=== PATIENT | male | born 1960 | race Caucasian/White ===

== ENCOUNTER 2018-11-06 13:17 | Emergency (ER) | payer OTHER ==
[~2018-11-06] VITALS: Ht 180.3 cm; Wt 125.2 kg
--- OUTSIDE RECORDS SUMMARY | ~2018-11-06 | XMS | Clinical Summary ---
Demographics + + + | Address | [address] | | | [place] [address] | + + + | Home Phone | | + + + | Preferred Language | Unknown | + + + | Marital Status | | + + + | Sikh Affiliation | Unknown | + + + | Race | White | + + + | Ethnic Group | Not or | + + + Author + + + | Organization | Unknown | + + + | Address | Unknown | + + + | Phone | Unavailable | + + + Support + + + + + | Name | Relationship | Address | Phone | + + + + + | BRITTNI ORTA | ECON | [place] | | + + + + + Care Team Providers + +------+ + | Care Movie Star Name | Role | Phone | + +------+ + PP | Unavailable | + +------+ + Source Comments YINKA is fully live on both [facility] Ambulatory and [facility] InPatient.[facility] Allergies Not on File Current Medications Not on file Active Problems Not on file Social History + +-------+ +--------+------+ | Tobacco Use | Types | Packs/Day | Years | Date | | | | | Used | | + +-------+ +--------+------+ | Never Assessed | | | | | + +-------+ +--------+------+ + + + | Sex Assigned at | Date Recorded | | | | + + + | Not on file | | + + + Plan of Treatment + + + + + | Health Maintenance | Due Date | Last Done | Comments | + + + + + | Influenza (Flu) | | | | | vaccination (#1) | 8 | | | + + + + + Results Not on filefrom Last 3 Months"
--- OUTSIDE RECORDS SUMMARY | ~2018-11-06 | XMS | Clinical Summary ---
Demographics + + + | Address | [address] | | | [place] [address] | + + + | Home Phone | | + + + | Preferred Language | Unknown | + + + | Marital Status | | + + + | Confucianist Affiliation | 1009 | + + + | Race | Unknown | + + + | Ethnic Group | Unknown | + + + Author + + + | Author | [facility] | + + + | Organization | [facility] | + + + | Address | Unknown | + + + | Phone | Unavailable | + + + Support + + +---------+ + | Name | Relationship | Address | Phone | + + +---------+ + | Detailed,Message | ECON | Unknown | | + + +---------+ + | Amarilis Orta | ECON | Unknown | | + + +---------+ + Care Team Providers + +------+ + | Care Assemblies And Installations Inspector Name | Role | Phone | + +------+ + | Jimmy Rogers MD | PP | | + +------+ + Allergies + + + + + + | Active Allergy | Reactions | Severity | Noted | Comments | | | | | Date | | + + + + + + | Hydromorphone | Hallucinations | Medium | 07/24/19 | | | | | | 16 | | + + + + + + | Morphine | Nausea and Vomiting | Low | 04/15/20 | | | | | | 15 | | + + + + + + Current Medications + + +--------+---------+------+------+-------+ | Prescription | Sig. | Disp. | Refills | Star | End | Statu | | | | | | t | Date | s | | | | | | Date | | | + + +--------+---------+------+------+-------+ | phenobarbital | Take 64.8 mg by | | | | | Activ | | (LUMINAL) 64.8 MG | mouth daily. | | | | | e | | tablet | | | | | | | + + +--------+---------+------+------+-------+ | | Take 1 tablet by | | | | | Activ | | lisinopril-hydrochlo | mouth daily. | | | | | e | | rothiazide | | | | | | | | (ZESTORETIC) 20-12.5 | | | | | | | | MG per tablet | | | | | | | + + +--------+---------+------+------+-------+ | insulin aspart | Inject into the | | | | | Activ | | protamine-insulin | skin 2 (two) times | | | | | e | | aspart (NOVOLOG | daily before meals. | | | | | | | 70/30) (70-30) 100 | | | | | | | | UNIT/ML injection | | | | | | | + + +--------+---------+------+------+-------+ | insulin glargine | Inject into the | | | | | Activ | | (LANTUS) 100 UNIT/ML | skin nightly. | | | | | e | | injection | | | | | | | + + +--------+---------+------+------+-------+ | metFORMIN | Take 1 tablet by | | | 07/12 | | Activ | | (GLUMETZA) 500 MG | mouth daily with | | | 12/29 | | e | | (MOD) 24 hr tablet | breakfast. Hold for | | | 16 | | | | | 2 days. Restart on | | | | | | | | 07/27/2015 | | | | | | + + +--------+---------+------+------+-------+ | metoprolol | Take 1 tablet by | 90 | 3 | 08/0 | | Activ | | (TOPROL-XL) 25 MG 24 | mouth daily. | tablet | | 2/20 | | e | | hr tablet | | | | 16 | | | + + +--------+---------+------+------+-------+ | atorvastatin | Take 1 tablet by | 90 | 3 | 08/2 | | Activ | | (LIPITOR) 80 MG | mouth every evening. | tablet | | 2/20 | | e | | tablet | | | | 17 | | | + + +--------+---------+------+------+-------+ Active Problems Not on file Family History + + +------+ + | Medical History | Relation | Name | Comments | + + +------+ + | Cancer | Mother | | | + + +------+ + | Diabetes type II | Mother | | | + + +------+ + + +------+--------+ + | Relation | Name | Status | Comments | + +------+--------+ + | Mother | | | | + +------+--------+ + Social History + +-------+ +--------+------+ | Tobacco Use | Types | Packs/Day | Years | Date | | | | | Used | | + +-------+ +--------+------+ | Never Smoker | | | | | + +-------+ +--------+------+ + +---+---+---+ | Smokeless Tobacco: | | | | | Never Used | | | | + +---+---+---+ + + +---------+ + | Alcohol Use | Drinks/We | oz/Week | Comments | | | ek | | | + + +---------+ + | Yes | 1 Cans | 0.6 | | | | of beer | | | + + +---------+ + + + + | Sex Assigned at | Date Recorded | | | | + + + | Not on file | | + + + Last Filed Vital Signs + + + + | Vital Sign | Reading | Time Taken | + + + + | Blood Pressure | 180/96 | 08/06/2016 9:09 AM PST | + + + + | Pulse | 70 | 08/06/2016 9:09 AM PST | + + + + | Temperature | 36.2 C (97.2 F) | 07/24/2015 10:03 AM PST | + + + + | Respiratory Rate | 18 | 02/06/2016 3:35 PM PDT | + + + + | Oxygen Saturation | 93% | 08/06/2016 9:09 AM PST | + + + + | Inhaled Oxygen | - | - | | Concentration | | | + + + + | Weight | 130.2 kg (287 lb) | 08/06/2016 9:09 AM PST | + + + + | Height | 182.9 cm (6') | 08/06/2016 9:09 AM PST | + + + + | Body Mass Index | 38.92 | 08/06/2016 9:09 AM PST | + + + + Plan of Treatment + + + + + | Health Maintenance | Due Date | Last Done | Comments | + + + + + | Vaccine: | | | | | Dtap/Tdap/Td (1 - | 1 | | | | Tdap) | | | | + + + + + | Colon Cancer | | | | | Screening | 2 | | | | (Colonoscopy) | | | | + + + + + | Vaccine: Zoster (1 | | | | | of 2) | 2 | | | + + + + + | Vaccine: Influenza | | | | | (Season Ended) | 9 | | | + + + + + Results Not on filefrom Last 3 Months Insurance + +--------+ +------+-------+---------+ | Payer | Benefi | Subscriber | Type | Phone | Address | | | t Plan | ID | | | | | | / | | | | | | | Group | | | | | + +--------+ +------+-------+---------+ | [employer] | FC-NET | [id number] | | | | | | WORK | | | | | + +--------+ +------+-------+---------+ | [employer] | ODS | [id number] | | | | | | HEALTH | | | | | | | PLAN | | | | | + +--------+ +------+-------+---------+ + +--------+ +--------+ + + | Guarantor Name | Accoun | Relation to | Date | Phone | Billing Address | | | t Type | Patient | of | | | | | | | | | | + +--------+ +--------+ + + | TONNY ORTA | Person | Self | [birth year] | Home: | [address] | | | al/Fam | | 2 | [phone] | [place] | | | [place] | | | [phone] | [phone] | + +--------+ +--------+ + +"
--- OUTSIDE RECORDS SUMMARY | ~2018-11-06 | XMS | Clinical Summary ---
Demographics + + + | Address | [address] | | | [place] [address] | + + + | Home Phone | | + + + | Preferred Language | Unknown | + + + | Marital Status | | + + + | Mormon Affiliation | 1041 | + + + | Race | Unknown | + + + | Ethnic Group | Unknown | + + + Author + + + | Author | [facility] | | | and [place] | + + + | Organization | [facility] | | | and [place] | + + + | Address | Unknown | + + + | Phone | Unavailable | + + + Support + + + + + | Name | Relationship | Address | Phone | + + + + + | Amarilis Chand | ECON | [address] | | | | | [place] | | | | | [address] | | + + + + + Care Team Providers + +------+ + | Care Frame Fixer Name | Role | Phone | + +------+ + | Jimmy Rogers | PP | | | MD | | | + +------+ + Allergies + + + + + + | Active Allergy | Reactions | Severity | Noted | Comments | | | | | Date | | + + + + + + | Hydromorphone | Other (See Comments) | Medium | 09/22/19 | | | | | | 17 | | + + + + + + | Morphine | Nausea And Vomiting | Low | 09/22/19 | | | | | | 17 | | + + + + + + Medications + + + +---------+------+------+-------+ | Medication | Sig | Dispensed | Refills | Star | End | Statu | | | | | | t | Date | s | | | | | | Date | | | + + + +---------+------+------+-------+ | atorvaSTATin | Take 80 mg by mouth. | | 0 | 08/0 | | Activ | | (LIPITOR) 80 MG | | | | 2/20 | | e | | tablet | | | | 16 | | | + + + +---------+------+------+-------+ | | Take 1 tablet by | | 0 | | | Activ | | lisinopril-hydrochlo | mouth 2 times daily. | | | | | e | | rothiazide | | | | | | | | (PRINZIDE,ZESTORETIC | | | | | | | | ) 20-12.5 MG per | | | | | | | | tablet | | | | | | | + + + +---------+------+------+-------+ | metFORMIN | Take 1,000 mg by | | 0 | 01/1 | | Activ | | (GLUMETZA) 500 MG 24 | mouth 2 times daily. | | | 6/20 | | e | | hr tablet | | | | 16 | | | + + + +---------+------+------+-------+ | metoprolol | Take 100 mg by mouth | | 0 | 08/0 | | Activ | | succinate | Daily. | | | 2/20 | | e | | (TOPROL-XL) 25 mg 24 | | | | 16 | | | | hr tablet | | | | | | | + + + +---------+------+------+-------+ | PHENobarbital 64.8 | Take 64.8 mg by | | 0 | | | Activ | | mg tablet | mouth nightly. | | | | | e | | | PATIENT STATES HE | | | | | | | | TAKES 3 TABLETS AT | | | | | | | | ONE TIME DAILY | | | | | | + + + +---------+------+------+-------+ | insulin glargine | Inject under the | | 0 | | | Activ | | (LANTUS SOLOSTAR) | skin nightly. | | | | | e | | 100 units/mL | | | | | | | | injection (pen) | | | | | | | + + + +---------+------+------+-------+ | aspirin 81 mg EC | Take 81 mg by mouth | | 0 | | | Activ | | tablet | Daily. | | | | | e | + + + +---------+------+------+-------+ | insulin lispro | Inject under the | | 0 | | | Activ | | (HUMALOG) 100 | skin 3 times daily | | | | | e | | units/mL injection | (before meals). | | | | | | | (vial) | SLIDING SCALE | | | | | | + + + +---------+------+------+-------+ | amLODIPine | Take 5 mg by mouth | | 0 | | | Activ | | (NORVASC) 5 mg | Daily. | | | | | e | | tablet | | | | | | | + + + +---------+------+------+-------+ Active Problems + + + | Problem | Noted Date | + + + | Bradycardia | 09/24/2016 | + + + | DM type 2 (diabetes mellitus, type 2) | 09/17/2016 | + + + | Essential hypertension | 09/17/2016 | + + + | LDL (low density lipoprotein receptor disorder) | 09/17/2016 | + + + | TRACIE (obstructive sleep apnea) | 09/17/2016 | + + + | Seizure disorder | 09/17/2016 | + + + | SOB (shortness of breath) | 09/17/2016 | + + + | Dizziness | 09/17/2016 | + + + | Chest pain | 09/17/2016 | + + + + + | Overview: Echo 07/01/15 LVEF 60-65%, [facility].Cardiac Cath | | 07/24/15, Two-vessel CAD with moderate disease of the proximal | | left anterior descending artery, and mild disease of the right | | coronary artery. Normal left ventricular end-diastolic pressure. | | SKYC. | + + + +---+ | Hypercholesterolemia | | + +---+ | ASCVD (arteriosclerotic cardiovascular disease) | | + +---+ Family History + + +------+ + | Medical History | Relation | Name | Comments | + + +------+ + | Heart attack | Maternal | | | | | Grandfath | | | | | er | | | + + +------+ + | Cancer | Mother | | | + + +------+ + | Diabetes | Mother | | | + + +------+ + | Heart disease | Son | | | + + +------+ + | Sleep apnea | Son | | | + + +------+ + + +---------+ + + | Relation | Name | Status | Comments | + +---------+ + + | Brother | half | Alive | snore | + +---------+ + + | Father | unknown | Alive | | + +---------+ + + | Maternal Grandfather | | | | + +---------+ + + | Mother | | | Snore | | | | (Age | | | | | 71) | | + +---------+ + + | Sister | half | Alive | snore | + +---------+ + + | Son | | Alive | | + +---------+ + + | Son | | Alive | | + +---------+ + + Social History + +-------+ +--------+------+ | Tobacco Use | Types | Packs/Day | Years | Date | | | | | Used | | + +-------+ +--------+------+ | Never Smoker | | | | | + +-------+ +--------+------+ + +------+---+ + | Smokeless Tobacco: | Chew | | Quit: | | Former User | | | 07/12/19 | | | | | 12 | + +------+---+ + + + +---------+ + | Alcohol Use | Drinks/We | oz/Week | Comments | | | ek | | | + + +---------+ + | Yes | 0 | 0.0 | RARE | | | Standard | | | | | drinks or | | | | | | | | | | equivalen | | | | | t | | | + + +---------+ + + + + | Sex Assigned at | Date Recorded | | | | + + + | Not on file | | + + + + + + + | Job Start Date | Occupation | Industry | + + + + | Not on file | Not on file | Not on file | + + + + + + + + | Travel History | Travel Start | Travel End | + + + + + + | No recent travel history available. | + + Last Filed Vital Signs + + + + | Vital Sign | Reading | Time Taken | + + + + | Blood Pressure | 132/66 | 12/08/20161415 PDT | + + + + | Pulse | 63 | 12/08/20161415 PDT | + + + + | Temperature | - | - | + + + + | Respiratory Rate | 16 | 12/08/20161415 PDT | + + + + | Oxygen Saturation | 96% | 12/08/20161415 PDT | + + + + | Inhaled Oxygen | - | - | | Concentration | | | + + + + | Weight | 125.4 kg (276 lb 6.4 | 12/08/20161415 PDT | | | oz) | | + + + + | Height | 181.6 cm (5' 11.5") | 12/08/20161415 PDT | + + + + | Body Mass Index | 38.01 | 12/08/20161415 PDT | + + + + Plan of Treatment + + + + + | Health Maintenance | Due Date | Last Done | Comments | + + + + + | Hepatitis C | | | | | Screening | 2 | | | + + + + + | Diabetic Eye Exam | | | | | | 0 | | | + + + + + | Diabetic Foot Exam | | | | | | 0 | | | + + + + + | Vaccine: | | | | | Dtap/Tdap/Td (1 - | 1 | | | | Tdap) | | | | + + + + + | Vaccine: | | | | | Pneumococcal 19-64 | 1 | | | | (PPSV23 only) Medium | | | | | Risk (1 of 1 - | | | | | PPSV23) | | | | + + + + + | Colorectal Cancer | | | | | Screening | 2 | | | | (Colonoscopy) | | | | + + + + + | Vaccine: Zoster (1 | | | | | of 2) | 2 | | | + + + + + | Hemoglobin A1c | | 10/27/2016 | | | Screening | 7 | | | + + + + + | Vaccine: Influenza | | | | | (Season Ended) | 9 | | | + + + + + Results Not on filefrom Last 3 Months Insurance + +--------+ +--------+ + +------+ | Payer | Benefi | Subscriber | Effect | Phone | Address | Type | | | t Plan | ID | madhav | | | | | | / | | Dates | | | | | | Group | | | | | | + +--------+ +--------+ + +------+ | [employer] | PHP | [id number] | 07/12/19 | [phone] | | PPO | | PLAN | PEBB | | 10-Pre | 5 | | | | | STATEW | | sent | | | | | | KRIS | | | | | | + +--------+ +--------+ + +------+ | MODA | MODA | [id number] | | [phone] | [address] | PPO | | | [address] | | [address] | [id number] | | | | [place] | | esent | | [place], | | | | [place] | | | | [place] [address] | | + +--------+ +--------+ + +------+ + +--------+ +--------+ + + | Guarantor Name | Accoun | Relation to | Date | Phone | Billing Address | | | t Type | Patient | of | | | | | | | | | | + +--------+ +--------+ + + | Troy Chand | Person | Self | [birth year] | | [address] | | [place] | sarina/José | | 1960 | [phone] | [address] [place] | | | [place] | | | [address] (Home) | [address] | + +--------+ +--------+ + + Advance Directives Patient has advance care planning documents on file. For more information, please contact:[facility] [place] [address]
--- OUTSIDE RECORDS SUMMARY | ~2018-11-06 | XMS | Clinical Summary ---
Demographics + + + | Address | [address] | | | [place] [address] | + + + | Home Phone | | + + + | Preferred Language | Unknown | + + + | Marital Status | | + + + | Alevism Affiliation | 1009 | + + + | Race | Unknown | + + + | Ethnic Group | Unknown | + + + Author + + + | Author | [facility] | + + + | Organization [...] Team Providers + +------+ + | Care Lan Manager Name | Role | Phone | + [...] +------+-------+---------+ | [employer] | FC-NET | [id number] | | | | | | WORK | | | | | + +--------+ +------+-------+---------+ | [employer] | ODS | [id number] | | | | | | HEALTH [...] | Self | [birth year] | Home: | [address] | | | al/Fam | | [phone] | [phone] | [place] | | | [place] | | | [phone] | [phone] | + +--------+ +--------+ + +"
--- OUTSIDE RECORDS SUMMARY | ~2018-11-06 | XMS | Clinical Summary ---
Demographics + + + | Address | [address] | | | [place] [address] | + + + | Home Phone | | + + + | Preferred Language | Unknown | + + + | Marital Status | | + + + | Druze Affiliation | Unknown | + + + [...] Team Providers + +------+ + | Care Fisher Swordfish Name | Role | Phone | + +------+ + PP | Unavailable | + +------+ + Source Comments YNIKA is fully live on both [facility] Ambulatory and [facility] InPatient.[facility] Allergies Not on File Current Medications [...]
--- OUTSIDE RECORDS SUMMARY | ~2018-11-06 | XMS | Clinical Summary ---
Demographics + + + | Address | [address] | | | [place] [address] | + + + | Home Phone | | + + + | Preferred Language | Unknown | + + + | Marital Status | | + + + | Nondenominational Affiliation | 1041 | + + + | Race | Unknown | + + + | Ethnic Group | Unknown | + + + Author + + + | Author | [facility] | | | and [place] | + + + | Organization | [facility] | | | and [place] | + + + | Address | Unknown | + + + | Phone | Unavailable | + + + Support + + + + + | Name | Relationship | Address | Phone | + + + + + | Amarilis Chand | ECON | [address] | | | | | [place] | | | | | [address] | | + + + + + Care Team Providers + +------+ + | Care Process Maintenance Technician Name | Role | Phone | + [...] +------+ | [employer] | PHP | [id number] | 07/12/19 | [phone] | | PPO | | PLAN | PEBB | | 10-Pre | 5 | | | | | STATEW | | sent | | | | | | KRIS | | | | | | + +--------+ +--------+ + +------+ | MODA | MODA | [id number] | | [phone] | [address] | PPO | | | OE[address] | | [address] | [address] | [phone] | | | | [place] | | esent | | [place], | | | | [place] | | | | [place] [address] | | + +--------+ +--------+ + +------+ + +--------+ +--------+ + + | Guarantor Name | Accoun | Relation to | Date | Phone | Billing Address | | | t Type | Patient | of | | | | | | | | | | + +--------+ +--------+ + + | Troy Chand | Person | Self | [birth year] | | [address] | | [place] | sarina/José | | 1960 | [phone] | [address] [place] | | | [place] | | | [address] (Home) | [address] | + +--------+ +--------+ + + Advance Directives Patient has advance care planning documents on file. For more information, please contact:[place] [address]
[~2018-11-06 13:17] MED LIST: ASPIR-LOW81 MG PO; KEFLEX500 MG PO; LANTUS SOL100 UNIT/1 SUB-Q; LEVOFLOXACIN500 MG PO; LIPITOR80 MG PO; LISINOPRIL-HCT1 EACH PO; LISINOPRIL20 MG PO; METFORMIN HCL1000 MG PO; METFORMIN HCL500 M1 PO; METOPROLOL SUCC25 MG PO; NORVASC5 MG PO; PHENOBARBITAL100 MG PO; REVATIO20 MG PO; ZITHROMAX250 MG PO
--- OUTSIDE RECORDS SUMMARY | 2018-11-06 13:20 | XMS ---
PreManage Notification: TONNY ORTA Security Slp Teacher Events No recent Security Events currently on file CRITERIA MET - OSCARP CARE PROVIDERS Jimmy Rogers Current PHONE: Unknown Schuyler has no Care Guidelines for this patient. EDerek VISIT COUNT (12 MO.) 1 ALFREDO Young TOTAL 1 NOTE: Visits indicate total known visits. ED/UCC VISIT TRACKING (12 MO.) 11/06/2018 13:18 [facility] TYPE: Emergency COMPLAINT: - RIB AND BACK PAIN INPATIENT VISIT TRACKING (12 MO.) No inpatient visits to display in this time frame [email or web address]
[2018-11-06] MEDS ORDERED: IBUPROFEN600 MG PO (14:32)
[2018-11-06] MEDS ORDERED: ZOFRAN4 MG SL (14:32)
[2018-11-06] MEDS ORDERED: NORCO 10-325 T1 EACH PO (14:32)
== END 2018-11-06 14:45 | disposition home or self-care (01) ==
LOC: ED 13:17
DX: S22.42XA Multiple fractures of ribs, left side, initial encounter for closed fracture (principal); I10 Essential (primary) hypertension; E78.00 Pure hypercholesterolemia, unspecified; Z87.442 Personal history of urinary calculi; Z87.891 Personal history of nicotine dependence; Z88.7 Allergy status to serum and vaccine; Z88.5 Allergy status to narcotic agent; Z79.82 Long term (current) use of aspirin; Z79.899 Other long term (current) drug therapy; V80.010A Animal-rider injured by fall from or being thrown from horse in noncollision accident, initial encounter
CPT/HCPCS: 71101; 99284-25

== ENCOUNTER 2019-04-06 15:48 | Emergency (ER) | payer OTHER ==
[~2019-04-06] VITALS: Ht 462.3 cm; Wt 122.5 kg
[~2019-04-06 15:48] MED LIST changes: +IBUPROFEN600 MG PO; +NORCO 10-325 T1 EACH PO; +ZOFRAN4 MG SL
--- OUTSIDE RECORDS SUMMARY | 2019-04-06 15:50 | XMS ---
PreManage Notification: TONNY ORTA Security Technical Services Specialist Events No recent Security Events currently on file CRITERIA MET - OSCARP CARE PROVIDERS DANIEL ROGERS Family [facility] 11/07/2018-Current PHONE: Unknown Daniel Rogers Treatment Current [place] PHONE: Unknown Schuyler has no Care Guidelines for this patient. EDerek VISIT COUNT (12 MO.) Leroy Young TOTAL 2 NOTE: Visits indicate total known visits. 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
[2019-04-06] MEDS ORDERED: METOPROLOL SUC200 MG PO (16:06)
[2019-04-06] MEDS ORDERED: CITALOPRAM HBR40 MG PO (16:07)
[2019-04-06] MEDS ORDERED: PREDNISONE20 MG PO (20:15)
[2019-04-06] MEDS ORDERED: VENTOLIN HFA18 GM INH (20:15)
--- NOTE | 2019-04-07 12:34 | EKG ---
[facility] [address] [place] [address] Signed Sinus bradycardia Left axis deviation Right bundle branch block Abnormal ECG No previous ECGs available Confirmed by KATIE SANTANA MD ([id number]) on 04/07/2019 12:34:24 PM Electronically Signed By: KATIE SANTANA MD 04/07/19 1234 PATIENT NAME: YOUJOSE L ARMSTRONGONY HENDERSON Electrocardiogram DATE OF : 64 PHYSICIAN: KATIE SANTANA MD REPORT #: [id number] REPORT IS CONFIDENTIAL AND NOT TO BE RELEASED WITHOUT AUTHORIZATION
--- NOTE | 2019-04-07 12:34 | EKG ---
[facility] [address], [place] [address] Signed Sinus bradycardia Left axis deviation Right bundle branch block Abnormal ECG When compared with ECG of 06-APR-2019 15:55, (Unconfirmed) No significant change was found Confirmed by KATIE SANTANA MD ([id number]) on 04/07/2019 12:34:38 PM Electronically Signed By: KATIE SANTANA MD 04/07/19 1234 PATIENT NAME: YOUTONNY MCGRAWS Electrocardiogram DATE OF : 64 PHYSICIAN: KATIE SANTANA MD REPORT #: [id number] REPORT IS CONFIDENTIAL AND NOT TO BE RELEASED WITHOUT AUTHORIZATION
== END 2019-04-06 20:28 | disposition home or self-care (01) ==
LOC: ED 15:48 → ER 15:48 → ED 20:28
DX: J40 Bronchitis, not specified as acute or chronic (principal); J98.01 Acute bronchospasm; I10 Essential (primary) hypertension; E11.9 Type 2 diabetes mellitus without complications; I25.2 Old myocardial infarction; Z87.01 Personal history of pneumonia (recurrent); Z88.5 Allergy status to narcotic agent; Z88.7 Allergy status to serum and vaccine; Z79.4 Long term (current) use of insulin; Z79.82 Long term (current) use of aspirin; Z79.899 Other long term (current) drug therapy
CPT/HCPCS: 71046; 80053; 83735; 84484; 85025; 93005; 93010; 94640; 99285-25; J7512

== ENCOUNTER 2022-02-04 06:20 | Day surgery (SDC) | payer OTHER ==
[~2022-02-04] VITALS: Ht 180.3 cm; Wt 114.1 kg
[~2022-02-04 06:20] MED LIST changes: +AMBIEN10 MG PO; +BAYER CHEWABLE81 MG PO; +CEFPROZIL500 MG PO; +CELECOXIB200 MG PO; +CITALOPRAM HBR40 MG PO; +GABAPENTIN600 MG PO; +METOPROLOL SUC200 MG PO; +NOVOLOG FL100 UNIT/1 SUB-Q; +OXYCODONE HCL5 MG PO; +OZEMPIC1 MG/0.71 SUB-Q; +PHENOBARBITAL64.8 MG PO; +PREDNISONE20 MG PO; +SENNA LAX8.6 MG PO; +TAMSULOSIN HCL0.4 MG PO; +VALSARTAN-HCTZ1 EAC1 PO; +VENTOLIN HFA18 GM INH; +XARELTO10 MG PO
--- NOTE | 2022-02-04 08:24 | NUR ---
02/04/22 0824 Bhumi Solitario 0816-PATIENT ARRIVED TO PACU ON 6L MASK RR EVEN. PATIENT REACTIVE TO VERBAL STIMULI OPENING EYES ORIENTED TO PACU AND DOZES BACK TO SLEEP. DRESSING TO CHEST CDI ICE APPLIED. GLUCOSE 291 PATIENT TO RESUME MEDICATIONS AT HOME. SR. IVF INFUSING. PATIENT HAS SLEEP APNEA BUT DOES NOT USE CPAP AT HOME.
--- NOTE | 2022-02-04 08:37 | NUR ---
PT ALERT, ORIENTED AND SUPPORTED BY HIS UNRULY. PT CONCERNED BECAUSE OF RECENT COVID INFECTION THAT PROCDDURE WILL NOT HAPPEN TODAY. HAD DAIJA, OPEN DISCUSSION. PT REQUESTED PRAYER,PT WOULD LIKE SOME RELIEF FROM THE CYST THAT HAS MADE HIS LIFE CHALLENGING. GAVE ENCOURAGEMENT, PROCECURE WILL HAPPEN!
[2022-02-04] MEDS ORDERED: HYDROCODON-ACE1 EAC8 PO (08:40)
--- NOTE | 2022-02-04 10:13 | OR ---
[facility] [address] [place], [place] [address] Signed DATE OF OPERATION: 02/04/2022 SURGEON: Nehal Gross MD PREOPERATIVE DIAGNOSIS: Midsternal epidermal inclusion cyst (3 cm). POSTOPERATIVE DIAGNOSIS: Midsternal epidermal inclusion cyst (3 cm). PROCEDURE: Excision of midsternal epidermal inclusion cyst. ESTIMATED BLOOD LOSS: None. INDICATIONS: Tonny is a 61-year-old diabetic gentleman, who developed a midsternal epidermal inclusion cyst. He said it started quite small, but now it was around 3 cm in diameter. He had been to his primary care provider and asked to see me in consultation. It has been very inflamed and tender. In the office, we incised and drained that under local anesthetic. We squeezed out as much sebum as possible. We left it open to use gauze packing. Actually his neighbor has been helping him with the packing. Apparently, his does not like to do it. He is aware that we have to let this settle down and then remove the entire cyst and cyst wall. He returns today to have his definitive excision. He has a full better granulation tissue. However, I some of the cyst wall on the right side of the cavity. I explained to Juan and his that it might be best to go and just leave this open and allow to heal in secondarily after we do our definitive excision. However, they wanted to close the skin and proceed from there. If it becomes infected, it is going to need open. By closing the skin, he is certainly going to have a contour defect. They are very aware of epidermal inclusion cyst at this point. They understand there is risk including, but not limited to bleeding, infection, scarring, change in contour of the skin as well as recurrent cyst in the same or other locations. They expressed understanding and would like to proceed. DESCRIPTION OF PROCEDURE: I met with Juan and his in our preop area. We were able to easily identify the area of the cyst over the midsternum. He was then taken to the operating room and placed in the supine position under monitored anesthesia care. He was given preoperative antibiotics along with subcutaneous heparin. SCDs were utilized. He was Electronically Signed By: NEHAL GROSS MD 02/04/22 1013 PATIENT NAME: TONNY ORTA OPERATIVE REPORT DATE OF : 64 REPORT #: [id number] PHYSICIAN: NEHAL GROSS MD PCP: KITA CA PAC REPORT IS CONFIDENTIAL AND NOT TO BE RELEASED WITHOUT AUTHORIZATION [facility] [address] [place], [place] [address] Signed then prepped and draped in the usual sterile fashion. We used our cautery to go around the entire cyst and cyst wall in all the indurated tissue. That cavity now is closer to 4 cm in diameter. Again, we could easily see part of the cyst wall on the right side. After this, the wound was irrigated and suctioned out until clear. Of course, we had injected local anesthetic in and around the lesion. We used 2-0 nylon interrupted vertical mattress sutures to bring the skin back together. We then used a 5-0 fast absorbing plain gut suture to bring the skin edges together as well. Dry gauze and tape were applied. Juan was then transferred over to his hospital bed and taken into recovery room in stable condition. Nehal Gross MD ALB/MODL /[id number] cc: MD Kita Gao PA Copies: NEHAL GROSS MD ~ Electronically Signed By: NEHAL GROSS MD 02/04/22 1013 PATIENT NAME: TONNY ORTA OPERATIVE REPORT DATE OF : 64 REPORT #: [id number] PHYSICIAN: NEHAL GROSS MD PCP: KITA CA PAC REPORT IS CONFIDENTIAL AND NOT TO BE RELEASED WITHOUT AUTHORIZATION
--- NOTE | 2022-02-05 13:23 | PATH ---
[facility] [address] [place], [place] [address] Signed SPECIMEN(S): A MID STERNAL CYST SPECIMEN SOURCE: A. MID STERNAL CYST CLINICAL HISTORY: Epidermal inclusion cyst excision. FINAL PATHOLOGIC DIAGNOSIS: Cyst, midsternal, excision: - Fibrocollagenous tissue with fragment of hyperkeratotic squamous epithelium, granulation tissue, and exuberant chronic and histiocytic inflammation with foreign body-type giant cell reaction. COMMENT: The fragment of epithelium could represent a residual portion of epidermoid inclusion cyst wall or epidermis, as there are nearby adnexal structures. Focal detached keratin is seen. The features could be compatible with a previously ruptured epidermoid inclusion cyst. Clinical correlation is required. NAL:cml:C2NR MICROSCOPIC EXAMINATION: Histologic sections of all submitted blocks are examined by light microscopy. These findings, together with the gross examination, support the pathologic diagnosis. Sections demonstrate fibroadipose tissue with granulation tissue formation, exuberant chronic inflammation, and foreign body type giant cell reaction. A portion of hyperkeratotic squamous epithelium and detached fragments of keratin debris are present. The squamous epithelium could represent residual epidermoid inclusion cyst wall. Overall, the findings are compatible with a previously ruptured epidermoid inclusion cyst. GROSS DESCRIPTION: The specimen, labeled "AC, A," and designated on the requisition "mid sternal epidermal inclusion cyst," is received in formalin and consists of a disrupted portion of red-pink, yellow-tran, lobulated soft tissue (4.0 x 3.2 x 1.8 cm). The specimen is inked blue and serially sectioned to reveal a yellow-tran to red-brown cut surface. Mobile Health Vehicle Operator sections are submitted in cassette (A1). PATIENT NAME: TONNY ORTA PATHOLOGY DATE OF : 64 REPORT #: [id number] PHYSICIAN: ROGER MCNULTY PCP: KITA CA PAC REPORT IS CONFIDENTIAL AND NOT TO BE RELEASED WITHOUT AUTHORIZATION [facility] [address] [place] [address] Signed AC (under the direct supervision of a pathologist) The Gross Description was prepared using a voice recognition system. The report was reviewed for accuracy; however, sound-alike word errors, addition and/or deletions may occur. If there is any question about this report, please contact Client Services. PERFORMING LABORATORY: The technical component was performed by [employer] [address] (CLIA# [id number]). [facility], [address] [address] (CLIA# [id number]). Diagnostician: Lois Noyola MD Pathologist Electronically Signed 02/05/2022 Copies: ~ PATIENT NAME: TONNY ORTA PATHOLOGY DATE OF : 64 REPORT #: [id number] PHYSICIAN: ROGER MCNULTY PCP: KITA CA PAC REPORT IS CONFIDENTIAL AND NOT TO BE RELEASED WITHOUT AUTHORIZATION
== END 2022-02-04 09:50 | disposition home or self-care (01) ==
LOC: DS 06:20
PROVIDERS: ATTEND Colon & Rectal Surgery
PROC: 0HB5XZZ Excision of Chest Skin, External Approach (ICD-10-PCS; principal; 2022-02-04 07:30)
DX: L72.8 Other follicular cysts of the skin and subcutaneous tissue (principal); L57.0 Actinic keratosis; I10 Essential (primary) hypertension; E11.9 Type 2 diabetes mellitus without complications; G47.33 Obstructive sleep apnea (adult) (pediatric); M17.12 Unilateral primary osteoarthritis, left knee; Z79.4 Long term (current) use of insulin; Z88.6 Allergy status to analgesic agent; Z88.5 Allergy status to narcotic agent
CPT/HCPCS: J0690; J1644; J1885; J2001; J2250; J2405; J2704; J3010; J7121

== ENCOUNTER 2025-03-30 05:40 | Day surgery (SDC) | payer OTHER ==
[~2025-03-30] VITALS: Ht 180.3 cm; Wt 102.0 kg
[~2025-03-30 05:40] MED LIST changes: +ALL DAY ALLERGY10 M3 PO; +BUPROPION XL150 MG PO; +HYDROCODON-ACE1 EAC8 PO; +JARDIANCE25 MG PO; +LACTATED RINGER'S 1,000 ML IV SCH; +METFORMIN HCL1000 M1 PO; +MUCINEX600 MG PO
[2025-03-30 06:06] VITALS: BP 148/73
[2025-03-30] MEDS ORDERED: ALBUTEROL/IPRATROPIUM 3 ML NEB INH ONE (06:30)
[2025-03-30] MEDS ORDERED: ALBUTEROL/IPRATROPIUM 3 ML NEB ONE (06:31)
--- NOTE | 2025-03-30 06:50 | NUR ---
0645 PT COMPLETED DUONEB, OXYGEN RANGING FROM 91% TO 95% ON RA. MICHELLE FHA UNDERWRITER INFORMED. FHA UNDERWRITER IN WITH PT. [address] VALLEJO AND CONFIRMED THAT PT HAS KNEE REPLACEMENTS, DR VALLEJO VERBAL ORDER FOR 2G ANCEF IV DIRECTIONAL BORE OPERATOR TO OR.
[2025-03-30] MEDS ORDERED: LIDOCAINE HCL 2% 5 ML SDV ONE ×2 (06:59→07:19)
[2025-03-30] MEDS ORDERED: Ropivacaine HCl 0.5% 30 ML VIAL ONE (06:59)
[2025-03-30] MEDS ORDERED: CEFAZOLIN SODIUM 2 GM in SODIUM CHLORIDE 0.9% 100 ML IV SCH (07:00)
[2025-03-30] MEDS ORDERED: IBLOOD GLUCOSE TEST STRIP 1 EA TEST VI PRN ×2 (07:00→08:15)
[2025-03-30] MEDS ORDERED: TRANEXAMIC ACID IN NACL,ISO-OS 1,000 MG/100 ML PIGGYBACK IV SCH (07:00)
[2025-03-30] MEDS ORDERED: LIDOCAINE HCL 1% 5 ML SDV INJ ONE (07:00)
[2025-03-30] MEDS ORDERED: DEXAMETHASONE SOD PHOS 10 MG/ML VIAL ONE (07:28)
[2025-03-30] MEDS ORDERED: KETOROLAC TROMETHAMINE 15 MG/ML VIAL IV PRN (07:30)
[2025-03-30] MEDS ORDERED: HYDROCODONE/ACETA 7.5/325 TAB PO PRN (07:30)
[2025-03-30] MEDS ORDERED: fentaNYL citrate 100 MCG/2 ML VIAL ONE (07:46)
[2025-03-30] MEDS ORDERED: SEVOFLURANE 250 ML BTL ONE (08:14)
[2025-03-30] MEDS ORDERED: fentaNYL citrate 50 MCG/ML SDV IV PRN (08:15)
[2025-03-30] MEDS ORDERED: NALOXONE HCL 0.4 MG SYR IV PRN (08:15)
[2025-03-30] MEDS ORDERED: PROCHLORPERAZINE EDISYLATE 10 MG/2 ML VIAL IV PRN (08:15)
[2025-03-30] MEDS ORDERED: HYDROCODON-ACE1 EA11 PO (09:05)
[2025-03-30 09:54] VITALS: BP 127/56
--- NOTE | 2025-03-30 10:05 | NUR ---
0937 PT ARRIVED TO DAY SURGERY ALERT AND ORIENTED. REPORT TAKEN FROM BISHOP Tejada RN. PT IS ON 2L OF OXYGEN VIA NASAL CANULLA, PT OXYGEN RANGING FROM 93-95% ON 2L VIA NASAL CANULLA. PT REPORTS NO SHORTNESS OF BREATH, PT DOES HAVE PRODUCTIVE COUGH. PT IN ROOM. PT REPORTING NO PAIN OR NAUSEA AT THIS TIME. PT ABLE TO TOLERATE PO PUDDING AND ICE WATER WITH RN IN ROOM. POLAR ICE MACHINE ON RIGHT SHOULDER. PT HAS CALL LIGHT WITHIN REACH. PER INVESTMENT ADVISOR, A CHEST XRAY HAS BEEN ORDERED AND WILL BE COMING SHORTLY DUE TO OXYGEN SATURATION.
--- NOTE | 2025-03-30 10:43 | NUR ---
1010 PT REDUCED TO 1L OF OXYGEN. OXYGEN SATS STAYING ABOVE 90%. 1020 OXYGEN REMOVED FROM PT, PT OXYGEN SATS RANGE FROM 89-90% ON RA. 1035 PT NEEDS TO URINATE. PT AMBULATED ACROSS THE ROOM, PT SAT BACK DOWN ON BED AND USED URINAL. PT ABLE TO VOID 300 MLS OF URINE INTO URINAL. PT PLACED BACK ON OXYGEN VIA NASAL CANULLA 2L. CHEST XRAY REVIEWED. WILL UPDATE ON RESULTS WHEN COMES OUT OF CURRENT SURGERY.
[2025-03-30 10:53] VITALS: BP 138/60
--- NOTE | 2025-03-30 10:58 | NUR ---
1055- PT IS SITTING UP WATCHING TV IN BED. O2 SATS REMAIN AT 95% ON 2L OF O2 VIA NC. SURGICAL SITE ASSESSED. BED IS LOCKED IN THE LOWEST POSTION. PT DENIES PAIN AND NAUSEA. PT SIPPING ON WATER AND ATE PUDDING. ALL QUESTIONS AND CONCERNS ANSWERED.
--- NOTE | 2025-03-30 11:22 | OR ---
[facility] [address] [place], [place] [address] Signed DATE OF OPERATION: 03/30/2025 SURGEON: Brittanie Lemos MD PREOPERATIVE DIAGNOSIS: Rotator cuff tear, right shoulder. POSTOPERATIVE DIAGNOSIS: Rotator cuff tear, right shoulder. PROCEDURE PERFORMED: Right shoulder arthroscopy with rotator cuff repair. LIQUIFIED NATURAL GAS TECHNICIAN: None. ANESTHESIA: General. BLOOD LOSS: Minimal. IMPLANTS: One 4.75 SwiveLock. BRIEF HISTORY: Tonny is a 64-year-old gentleman with painful shoulder. He had prior rotator cuff repair. Risks, benefits, and alternatives were discussed with him. He elected to proceed. DESCRIPTION OF PROCEDURE: Once consent was obtained, he was taken to the operating room. After adequate anesthesia, he was placed in a beach chair position. All downside pressure points were well padded. The right shoulder was prepped and draped in a standard sterile fashion. The shoulder was injected with 15 mL of 0.25% Marcaine with epinephrine as was the subacromial space. Standard posterior portal was made and the scope was introduced in the shoulder. Diagnostic arthroscopy was undertaken. The glenohumeral surfaces were found to be intact. The labrum was found to be intact. The biceps and biceps anchor were intact. The rotator cuff showed a 1 cm tear in the anterior portion of the supraspinatus. This was confirmed by palpation using a spinal needle. A spinal needle Electronically Signed By: BRITTANIE LEMOS MD 03/30/25 1122 PATIENT NAME: YOUTONNY OPERATIVE REPORT DATE OF : 64 REPORT #: [id number] PHYSICIAN: BRITTANIE LEMOS MD PCP: CARMEN PALACIOS MD REPORT IS CONFIDENTIAL AND NOT TO BE RELEASED WITHOUT AUTHORIZATION [facility] [address] [facility] [place] [address] Signed was left in place. The scope was withdrawn and placed in subacromial space. The bursa was noted to be quite thickened and full of scar tissue throughout. A direct lateral portal was established and using a combination of Mitek VAPR and shaver, the scar tissue and bursa were removed. This allowed visualization of the superior rotator cuff. The tear was easily located using a spinal needle and was debrided using the shaver and straight biter. The underlying bone was then debrided. He had a large hook anterior and anterolaterally off the acromion and a barrel bur was then used to flatten this out to get better working space. The FiberTape was then placed in an inverted mattress configuration in the rotator cuff and brought down to the tuberosity. The cuff was easily reducible. The rotator cuff attachment was not bleeding well. We then used arthroscopy awls to microfracture the superior surface creating an excellent bleeding bed. The 4.75 anchor was then placed on the suture and advanced to the tuberosity. The suture was tensioned and the anchor was impacted until it was well-seated. It was then screwed into position and the tails were cut. The final repair showed good stability with motion of the shoulder under arthroscopic vision. There was excellent bleeding from the microfracture and the implant. The scope was withdrawn. Portals were closed with 3-0 nylon and dressed with Allevyn and OpSites. We then attempted to find the suture that he thought was in his lateral incision on his elbow, however, I was unable to find anything. The patient was awakened, taken to the recovery room in satisfactory condition. All sponge, needle, and instrument counts were correct. Brittanie Lemos MD BA/ED /[id number] Copies: ~ Electronically Signed By: BRITTANIE LEMOS MD 03/30/25 1122 PATIENT NAME: TONNY ORTA OPERATIVE REPORT DATE OF : 64 REPORT #: [id number] PHYSICIAN: BRITTANIE LEMOS MD PCP: CARMEN PALACIOS MD REPORT IS CONFIDENTIAL AND NOT TO BE RELEASED WITHOUT AUTHORIZATION
[2025-03-30 11:50] VITALS: BP 141/63
--- NOTE | 2025-03-30 12:37 | NUR ---
1124 PT CONDITION DISCUSSED WITH DR VALLEJO BY PROTOCOL MANAGER, ORDER PUT IN FOR HOSPITALIST CONSULT DUE TO PT O2 SAT AND CHEST XRAY RESULTS. PT AWARE OF UPDATE. PT UNDERSTANDING AT THIS TIME. 1130 DR FRIEND IN ROOM. PT REMOVED FROM OXYGEN FOR TRIAL ON RA. 1136 OXYGEN SATRUATION BACK DOWN TO 86-89% ON RA. DR FRIEND STILL IN ROOM AND CONTINUING ASSESSMENT. PT REPORTS NO SHORTNESS OF BREATH AT THIS TIME. 1140 DR FRIEND GIVES VERBAL OKAY FOR PT TO BE DISCHARGED HOME. DR FRIEND WROTE PAPER PRESCRIPTION FOR PT FOR ZPACK TO BE FOLLOWED DIRECTED BY PHARMACY. ALSO PRESCRIBED AN INHALER FOR PT. AND RN EXPLAINED BOTH OF THESE TO PT AND WHY THEY ARE BEING PRESCRIBED, PT AND STATE UNDERSTANDING. DR VALLEJO UPDATED ABOUT PT DISCHARGE. DR VALLEJO AWARE O2 SAT AND THAT PT WILL BE DISCHARGED AND WHICH PRESCRIPTIONS ARE BEING GIVEN PT BY DR FRIEND. NO FURTHER ORDERS AT THIS TIME. 1145 HOURLY ROUNDING DONE WITH PT. VITALS TAKEN. IV ASSESSED. PT SPOUSE IN ROOM AT BEDSIDE. PT REPORTING NO PAIN OR NAUSEA. PT CAN MOVE FINGERS BUT UNABLE TO MOVE ARM. SURGICAL ARM IN SLING. DRESSINGS CLEAN DRY AND INTACT. DISCUSSED THAT IF ANY DEVELOPING SYMPTOMS OCCUR AT HOME SUCH FEVER, SOB, OR DIFFICULTY BREATHING OCCURS THAT PT SHOULD GO TO ER IMMEDIATLY. PT AND STATE UNDERSTANDING. 1210 DISHARGE INFORMATION GONE OVER WITH PT AND SPOUSE. NO QUESTIONS AT THIS TIME. INCENTIVE SPIROMETER GIVEN TO PT AND INSTRUCTIONS ON HOW TO USE DONE WITH PT. PT DEMONSTATES UNDERSTANDING AND USES INCENTIVE SPIROMETER. 1223 IV DISCONTINUED FOR DISCHARGE. PT GETTING DRESSED WITH ASSISTANCE OF PT'S SPOUSE. PT SPOUSE HAS PRESCRIPTION IN HAND AND DISCHARGE PAPERWORK, ALONG WITH POLAR ICE MACHINE 1228 PT DISCHARGED FROM DAY SURGERY WITH DISCHARGE INFO AND PRESCRIPTION WITH SPOUSE. PT ABLE TO AMBULATE HIMSELF TO WHEELCHAIR WITHOUT EXPERIENCING ANY SOB. PT HAS STEADY GAIT. PT WHEELED TO THE FRONT OF THE HOSPITAL TO PT'S SPOUSE'S CAR. PT HAS ALL BELONGING WITH HIM AND SPOUSE, NO QUESTIONS AT THIS TIME.
--- NOTE | 2025-03-30 17:38 | NUR ---
03/30/25 1738 Graciela [place]ands [place] 0903- PT PRESENTS TO PACU, SEMI MOLINA POSITION, NON REACTIVE TO STIMULUS. BREATHING EVEN AND NON LABORED, O2 AT 6L PER MASK. LR INFUSING TO LH IV. ABD SOFT, NON DISTENDED. PULSES INTACT TO RIGHT ARM, SLING IN PLACE. DRESSINGS X 2 TO RIGHT SHOULDER. ALL MONITORS IN PLACE. 0908- PT WAKES TO VERBAL STIMULI, DENIES PAIN OR NAUSEA. PT HAS HARSH PRODUCTIVE COUGH. 0915- CRYO CUFF TO RIGHT SHOULDER, DRESSINGS CDI. 0921- PT MOVED TO ROOM AIR. 0926- PT O2 SATS DROP TO MID 80'S, PT COUGHS AND DEEP BREATHS WITH LITTLE IMPROVEMENT. PT PLACED ON 2L AND THEN 4L TO GET SATS INTO THE MID 90'S. 0934- MOVED PT DOWN TO 2L O2 PER NC AT THIS TIME, SATS REMAIN 92-94%. 0939- PT HAS DIMINISHED BREATH SOUNDS AND RHONCHI IN BILATERAL BASES WITH OCCASIONAL EXPIRATORY WHEEZING THROUGHOUT. 2ND ATTEMPT AT ROOM AIR. 0940- PT O2 SATS DROP TO 88%, 2L PER NC REPLACED AT THIS TIME. CHEST XRAY REQUEST FROM MICHELLE ESPINOZA, ORDERED AT THIS TIME. 0950- PT TAKEN BACK TO DAY SURGERY VIA STRETCHER, DRESSINGS ASSESSED WITH HAYDEE AT BEDSIDE. DISCUSSED PLAN OF CARE AND NEEDING TO KEEP PT TO WATCH O2 SATS AND DISCUSS FURTHER EVAL WITH DR VALLEJO. PT ON 2L O2, AT BEDSIDE, REPORT AT BEDSIDE, CARE OF PT TURNED OVER AT THIS TIME.
== END 2025-03-30 12:28 | disposition home or self-care (01) ==
LOC: DS 05:40
PROVIDERS: ATTEND Specialist
PROC: 3E0T3BZ Introduction of Anesthetic Agent into Peripheral Nerves and Plexi, Percutaneous Approach (ICD-10-PCS; 2025-03-30)
PROC: 0LM14ZZ Reattachment of Right Shoulder Tendon, Percutaneous Endoscopic Approach (ICD-10-PCS; principal; 2025-03-30 07:55)
DX: M75.121 Complete rotator cuff tear or rupture of right shoulder, not specified as traumatic (principal); I10 Essential (primary) hypertension; E11.9 Type 2 diabetes mellitus without complications; E78.00 Pure hypercholesterolemia, unspecified; G40.909 Epilepsy, unspecified, not intractable, without status epilepticus; I25.2 Old myocardial infarction; Z79.84 Long term (current) use of oral hypoglycemic drugs; Z79.4 Long term (current) use of insulin; Z79.899 Other long term (current) drug therapy; Z88.5 Allergy status to narcotic agent; Z88.7 Allergy status to serum and vaccine; Z90.49 Acquired absence of other specified parts of digestive tract
CPT/HCPCS: 64415; 71045; C1713; J0688; J1100; J2003; J2405; J2704; J2795; J3010; J7121

== ENCOUNTER 2025-06-08 13:48 | Emergency (ER) | payer OTHER ==
[~2025-06-08] VITALS: Ht 180.3 cm; Wt 107.9 kg
--- NOTE | ~2025-06-08 | EKG ---
[facility] [address] [place], [place] [address] Draft EK completed, results pending confirmation PATIENT NAME: TONNY ORTA Electrocardiogram DATE OF : 64 PHYSICIAN: PRELIMINARY REPORT #: [id number] REPORT IS CONFIDENTIAL AND NOT TO BE RELEASED WITHOUT AUTHORIZATION
[~2025-06-08 13:48] MED LIST changes: +HYDROCODON-ACE1 EA11 PO; -LACTATED RINGER'S 1,000 ML IV SCH
--- OUTSIDE RECORDS SUMMARY | 2025-06-08 13:49 | XMS ---
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 EDerek VISIT COUNT (12 MO.) Martin Young TOTAL 1 NOTE: Visits indicate total known visits. ED/UCC VISIT TRACKING (12 MO.) 06/08/2025 13:[address] [facility] [place] TYPE: Emergency COMPLAINT: - SHORTNESS OF BREATH INPATIENT VISIT TRACKING (12 MO.) No inpatient visits to display in this time frame [email or web address]
[2025-06-08] MEDS ORDERED: ALBUTEROL/IPRATROPIUM 3 ML NEB INH PRN (14:00)
[2025-06-08 14:35] LABS: BASOPHILS 0.4 % (0.2-1.2); EOSINOPHILS 0.2 % (0.8-7.0); LYMPHOCYTES 18.9 % (21.8-53.1); MCH 28.9 PG (25.7-32.2); MCHC 34.6 g/dL (32.3-36.5); MCV 83.6 fL (79.0-92.2); MONOCYTES 12.1 % (5.3-12.2); NEUTROPHILS 68.2 % (34.0-67.9); RBC 5.19 M/uL (4.63-6.08)
[2025-06-08 14:44] LABS: ALT (SGPT) 15.0 U/L (14-59); AST (SGOT) 16.0 U/L (15-37); GLOMERULAR FILTRATION RATE,EST 92.0 mL/min (>60); PROTEIN, TOTAL 7.0 g/dL (6.4-8.2); UREA NITROGEN 11.0 mg/dL (7-18)
[2025-06-08] MEDS ORDERED: ALBUTEROL/IPRATROPIUM 3 ML NEB INH ONE (14:45)
[2025-06-08 15:07] LABS: CORONAVIRUS COVID-19 AG NEGATIVE (NEGATIVE)
[2025-06-08 16:14] VITALS: BP 152/65
[2025-06-08] MEDS ORDERED: PREDNISONE20 MG PO (16:15)
[2025-06-08] MEDS ORDERED: VENTOLIN HFA18 GM INH (16:15)
[2025-06-08] MEDS ORDERED: AZITHROMYCIN250 MG PO (16:15)
== END 2025-06-08 16:21 | disposition home or self-care (01) ==
LOC: ED 13:48
PROVIDERS: Emergency Medicine
DX: J40 Bronchitis, not specified as acute or chronic (principal); I10 Essential (primary) hypertension; Z87.442 Personal history of urinary calculi; E11.9 Type 2 diabetes mellitus without complications; Z88.5 Allergy status to narcotic agent; Z88.7 Allergy status to serum and vaccine; Z79.899 Other long term (current) drug therapy
CPT/HCPCS: 36415; 71045; 80053; 83735; 83880; 84484; 85025; 93005; 93010; 96374; 99285-25; J2919